=== PATIENT | female | born 1985 | race Caucasian/White ===

== ENCOUNTER 2020-10-25 11:31 | Emergency (ER) | payer BC, SELFPAY ==
[2020-10-25 11:44] VITALS: BP 99/64; PULSE 72; RESP 18; TEMP 37.7; O2SAT 100
--- NOTE | 2020-10-25 12:07 | ED.URI ---
HPI - URI/Sore Throat General Chief Complaint: Upper Respiratory Infection Stated Complaint: fever/Chills Time Seen by Provider: 10/25/20 12:07 Source: patient Mode of arrival: ambulatory Limitations: no limitations History of Present Illness HPI Narrative: Kalli Keys is a 34-year-old female with a PMH of IBS S with constipation who comes to [facility] with complaints of muscle aching and fever that started last night. She is here for Covid test and for evaluation of her illness; she states she ate salmon last night for dinner but it tasted fine she has had no vomiting but has had some cramps and generally feels poorly Related Data Home Medications Medication Instructions Recorded Confirmed prucalopride [Motegrity] 2 mg PO DAILY 10/25/20 10/25/20 Allergies Allergy/AdvReac Type Severity Reaction Status Date / Time erythromycin base AdvReac Nausea Verified 10/25/20 11:54 Review of Systems Review of Systems: Narrative: CONSTITUTIONAL: Denies fever, chills, sweats. EYES: Denies visual changes, redness, discharge. ENT: Denies rhinorrhea, congestion, sore throat, otalgia. CARDIOVASCULAR: Denies chest pain, palpitations, edema. RESPIRATORY: Denies dyspnea, wheezing, cough GASTROINTESTINAL: Feels nauseated, abdominal pain, nausea, vomiting, diarrhea. GENITOURINARY: Denies dysuria, hematuria, abnormal discharge SKIN: Denies rash or itching. NEUROLOGIC: Denies numbness, or focal weakness. PSYCHIATRIC: Denies anxiety or depression. Has general muscle pain PMFSH Past Medical History Medical History IBS (irritable bowel syndrome) Social History Social History (Updated 10/25/20 @ 12:27 by America Gimenez CNP) Smoking status: Never smoker Alcohol intake: never Gender identity (if verbalized by the patient): Female Comments At time of signature, I agree with nursing past medical, surgical, social and family history. There is no relevant family history pertinent to the presenting complaint. Exam Narrative: Exam Narrative: GENERAL: This is a well-nourished, well-developed patient, in mild distress. Has fever of 100 HEAD: normocephalic, atraumatic. EYES: Sclera clear/white. Vision is grossly intact. EARS: External ears normal, . Hearing grossly intact. NOSE: External nose normal without nasal discharge, nares without redness, no rhinorrhea. THROAT: Mucous membranes moist, p NECK: Neck supple, non-tender CARDIOVASCULAR: Regular rate and rhythm without murmurs, gallops, or rubs. RESPIRATORY: Clear to auscultation. Breath sounds equal bilaterally. No wheezes, rales, or rhonchi. GASTROINTESTINAL: Abdomen soft, non-tender, SKIN: warm, intact with no suspicious lesions or rash, good texture and turgor. NEURO: awake, alert, and oriented to person, place and time. There were no obvious focal neurologic abnormalities. Steady gait EXTREMITIES: Normal range of motion. BACK: Nontender without deformity Course Course Emergency Course: Patient complaining of muscle aches and feeling uncomfortable with a fever since last night Rapid Covid test negative flu test negative; Covid PCR sent Refused Toradol, fused Zofran states does not feel nauseated Will rotate Tylenol and ibuprofen Discussed quarantine until results received-she requested low-dose muscle relaxant at discharge Vital Signs Vital signs: Vital Signs Temperature 100 F H 10/25/20 11:44 Pulse Rate 72 10/25/20 11:44 Respiratory Rate 18 10/25/20 11:44 Blood Pressure 99/64 L 10/25/20 11:44 Pulse Oximetry 100 10/25/20 11:44 Temperature 100 F H 10/25/20 11:44 Pulse Rate 72 10/25/20 11:44 Respiratory Rate 18 10/25/20 11:44 Blood Pressure 99/64 L 10/25/20 11:44 Pulse Oximetry 100 10/25/20 11:44 MDM - URI/Sore Throat Differential Diagnosis Differential diagnosis: Likely upper respiratory infection, viral infection, influenza, pharyngitis and other Lab Data Labs: Lab Resu
[2020-10-26 17:28] LABS: SARS-CoV-2 RNA PCR Negative
== END 2020-10-25 12:40 | disposition home or self-care (01) ==
PROVIDERS: Emergency Provider Nurse Practitioner
DX: B34.9 Viral infection, unspecified (principal); Z20.822 Contact with and (suspected) exposure to COVID-19; K58.9 Irritable bowel syndrome, unspecified
CPT/HCPCS: 87426; 87804; 99203; C9803; G0463; U0003; U0005